=== PATIENT | male | born 1990 | race Caucasian/White ===

== ENCOUNTER 2022-11-05 13:06 | Emergency (ER) | payer SELFPAY ==
[2022-11-05] MEDS ORDERED: Tetracaine HCl/PF 0.5% 4 ML Bottle EYEBOTH STA (14:10)
== END 2022-11-05 15:05 | disposition home or self-care (01) ==
LOC: MW.ED 13:06
DX: S05.01XA Injury of conjunctiva and corneal abrasion without foreign body, right eye, initial encounter (principal)
CPT/HCPCS: 99283; J3490